=== PATIENT | male | born 1955 | race Caucasian/White ===

== ENCOUNTER → 2017-02-02 | Outpatient (CLI) | payer BC ==
[2017-02-02 16:26] LABS: Blood Urea Nitrogen 21 mg/dL (9-20); Non-African American GFR(MDRD) >60 (>60 ml/min/1.73 sqM)
== END | disposition home or self-care (01) ==
LOC: LABWHC1 15:58
PROVIDERS: ATTEND Physical Medicine & Rehabilitation
DX: M47.812 Spondylosis without myelopathy or radiculopathy, cervical region (principal); M50.321 Other cervical disc degeneration at C4-C5 level
CPT/HCPCS: 36415; 82565; 84520

== ENCOUNTER → 2017-12-24 | Outpatient (CLI) | payer BC ==
--- NOTE | 2017-12-24 15:04 | US ---
EXAMINATION TYPE: US groin LT DATE OF EXAM: 12/24/2017 COMPARISON: NONE CLINICAL HISTORY: 62-year-old male enlarged lymph node Lt side R59.9. Patient has personal history of lymphoma in 2010. Feels lump left groin. FINDINGS: Targeted sonographic examination along the left groin with particular attention to the palp able site. FINDINGS: Left groin scanned directly over palpable, there is a 1.3 x 0.9 x 0.8 cm complex are that does not de monstrate vascularity. This area is close to skin surface and anterior to vessels. IMPRESSION: Palpable site along the left groin corresponds to a 1.3 x 0.9 cm complex area. Somewhat atypical for a lymph node as there is no hilar vascularity. Correlate for possibility of a small subcutaneous tia elvira or area of fat necrosis. The area should be followed clinically. If growth is noted, tissue samp ling can be performed.
== END | disposition home or self-care (01) ==
LOC: RADUSWWP 14:06
PROVIDERS: ATTEND Internal Medicine Hematology & Oncology
DX: C85.98 Non-Hodgkin lymphoma, unspecified, lymph nodes of multiple sites (principal); R59.0 Localized enlarged lymph nodes

== ENCOUNTER → 2018-11-10 | Outpatient (CLI) | payer BC ==
--- NOTE | 2018-11-10 09:19 | CT ---
EXAMINATION TYPE: CT abdomen pelvis wo con DATE OF EXAM: 11/10/2018 COMPARISON: 03/05/2016 and left groin ultrasound dated 12/24/2017 HISTORY: Left lower quadrant pain CT DLP: 829 mGycm Automated exposure control for dose reduction was used. TECHNIQUE: Helical acquisition of images was performed from the lung bases through the pelvis. FINDINGS: LUNG BASES: There is minimal bibasilar subsegmental dependent atelectasis. LIVER/GB: The unenhanced liver has an unremarkable morphology. No cholelithiasis. PANCREAS: There are punctate calcifications within the pancreatic parenchyma near the ampulla of Vate r. These may be sequela of prior pancreatitis. No current peripancreatic fat stranding is seen. No ot her pancreatic calcifications. No discrete ductal dilatation. SPLEEN: No significant abnormality is seen. ADRENALS: No significant abnormality is seen. KIDNEYS: There is redemonstration of multiple left renal sinus cysts as seen on the prior of 2015. No shane hydronephrosis is seen or hydroureter. No nephrolithiasis of either kidney. FREE AIR: No free air is visualized ADENOPATHY: No greater than 1 cm short axis lymph node is seen in the abdomen or pelvis. No superfic ial inguinal adenopathy in the [id number]. REPRODUCTIVE ORGANS: Prostate gland is heterogenous and enlarged measuring 5.6 cm in transverse dimen manuela. URINARY BLADDER: Incompletely distended. Tiny urachal remnant is noted. OSSEOUS STRUCTURES: Mild femoral acetabular arthropathy is present bilaterally. Nonspecific scleroti c foci within the iliac bones could represent bone islands and are unchanged from the exam of 2016. V corry minimal degenerative changes of the spine are present. BOWEL: Colonic diverticula are present without pericolonic fat stranding. Cecum is low-lying. Append ix is not definitely visualized. Few loops of small bowel protrude lateral to the left hemicolon such as on series 3 image 44 although these are nondilated to suggest internal hernia. No dilated small o r large bowel are seen. No sizable inguinal hernia although the inguinal rings are slightly fat fille d. OTHER: Minimal atherosclerosis is seen of the abdominal aorta and its branches. IMPRESSION: 1. NO CT FINDING TO CORRESPOND TO THE PATIENT'S LEFT LOWER QUADRANT PAIN. COLONIC DIVERTICULA ARE SEE N WITHOUT CT EVIDENCE OF ACUTE DIVERTICULITIS. 2. SIMILAR APPEARING LEFT RENAL SINUS CYSTS, ALSO 9. NO SHANE HYDRONEPHROSIS OR HYDROURETER OF EITHER KIDNEY. NO NEPHROLITHIASIS. 3. PUNCTATE PANCREATIC CALCIFICATIONS, LIKELY SEQUELA OF PRIOR PANCREATITIS.
== END | disposition home or self-care (01) ==
LOC: RADCTMAIN 07:45
PROVIDERS: ATTEND Family Medicine
DX: K57.30 Diverticulosis of large intestine without perforation or abscess without bleeding (principal); K86.89 Other specified diseases of pancreas; R10.32 Left lower quadrant pain
CPT/HCPCS: 74176